=== PATIENT | female | born 1930 | race Caucasian/White ===

== ENCOUNTER → 2016-10-27 | Outpatient (CLI) | payer OTHER ==
[~2016-10-27] MED LIST: ALPH50CA2 PO; AMLO5TAB2 PO; CARV12.52 PO; ENAL10TA PO; LACT1CAP35 PO; PIOG15TA2 PO; PREG50CA PO
[2016-10-27 15:37] LABS: ASPARTATE AMINO TRANSFERASE 11 U/L (15-37); BLOOD UREA NITROGEN 25 mg/dL (7-18)
== END | disposition home or self-care (01) ==
LOC: STAR 14:06
PROVIDERS: ATTEND Neurological Surgery
DX: Z01.818 Encounter for other preprocedural examination (principal); M51.36 Other intervertebral disc degeneration, lumbar region; M48.07 Spinal stenosis, lumbosacral region; G89.29 Other chronic pain; R79.1 Abnormal coagulation profile
CPT/HCPCS: 36415; 71020; 72110; 80053; 81001; 85025; 85610; 85730; 87086; 93005

== ENCOUNTER 2016-11-03 10:00 | Inpatient (IN) | payer OTHER ==
[~2016-11-03] VITALS: Ht 167.6 cm; Wt 74.0 kg
[~2016-11-03 10:00] MED LIST changes: +BACITRACIN 50,000 UNIT ONE; +BUPIVACAINE/PF 0.25% ONE; +BUPIVACAINE/PF-EPI 0.5% 1:200K ONE; +THROMBIN 5,000 UNIT VIAL TP ONE
[2016-11-03] MEDS ORDERED: LACTATED RINGERS 1,000 ML IV SCH (11:41)
[2016-11-03 11:45] VITALS: BP 137/71
[2016-11-03] MEDS ORDERED: FENTANYL PF 250 MCG/5ML ONE (12:00)
[2016-11-03] MEDS ORDERED: ONDANSETRON 2MG/ML, 2ML IVPush PRN (13:00)
[2016-11-03] MEDS ORDERED: OXYcodone 5 MG/5 ML ORAL.SOL UDC PO PRN (13:00)
[2016-11-03] MEDS ORDERED: hydrALAzine 20 MG/ML, 1ML IV PRN (13:00)
[2016-11-03] MEDS ORDERED: LABETALOL 5MG/ML, 20ML IV PRN (13:00)
[2016-11-03] MEDS ORDERED: HYDROmorphone 1 MG/ML, 1ML IV PRN (13:00)
[2016-11-03] MEDS ORDERED: FENTANYL PF 100 MCG/2ML IV PRN (13:00)
[2016-11-03] MEDS ORDERED: FENTANYL PF 100 MCG/2ML EPIDPUSH ONE (13:02)
[2016-11-03] MEDS ORDERED: FENTANYL PF 100 MCG/2ML ONE (13:26)
[2016-11-03] MEDS ORDERED: PROMETHAZINE 25 MG/ML, 1ML IM PRN (14:00)
[2016-11-03] MEDS ORDERED: CYCLOBENZAPRINE 10 MG TABLET PO PRN (14:00)
[2016-11-03] MEDS ORDERED: morphine SULFATE 10 MG/ML, 1ML IVPush PRN (14:00)
[2016-11-03] MEDS ORDERED: PHARMACY MAY ADJ FOR RENAL FX MC PRN (14:00)
[2016-11-03] MEDS ORDERED: HYDROcodone/APAP 5/325 TABLET PO PRN (14:00)
[2016-11-03] MEDS ORDERED: DIPHENHYDRAMINE 50 MG/ML, 1ML IVPush PRN (14:00)
[2016-11-03] MEDS ORDERED: HYDROcodone/APAP 10/325 MG TABLET PO PRN (14:00)
[2016-11-03] MEDS ORDERED: SENNA/DOCUSATE TABLET PO PRN (14:00)
[2016-11-03] MEDS ORDERED: CEFAZOLIN 1,000 MG ONE (16:10)
[2016-11-03] MEDS ORDERED: ONDANSETRON 2MG/ML, 2ML ONE (16:10)
[2016-11-03] MEDS ORDERED: PROPOFOL 10 MG/ML, 20ML ONE (16:10)
[2016-11-03] MEDS ORDERED: SUCCINYLCHOLINE 20 MG/ML, 10ML ONE (16:10)
[2016-11-03] MEDS ORDERED: ROCURONIUM 10 MG/ML ONE (16:10)
[2016-11-03] MEDS ORDERED: GLYCOPYRROLATE 0.2MG/1ML ONE (16:10)
[2016-11-03] MEDS: OXYcodone/APAP 5/325MG TABLET PO PRN ×3 (17:50→23:31)
[2016-11-03] MEDS: INSULIN REGULAR 100 UNITS/ML, 3ML VIAL SQ-INSULIN SCH ×2 (17:50→21:00)
[2016-11-03] MEDS: NS + 20MEQ KCL 1,000 ML IV SCH (18:53)
[2016-11-03 20:05] VITALS: BP 134/75
[2016-11-03] MEDS: PREGABALIN 25 MG CAPSULE PO SCH (21:01)
[2016-11-03] MEDS: ENALAPRIL 10 MG TABLET PO SCH (21:01)
[2016-11-03] MEDS: CARVEDILOL 25 MG TABLET PO SCH (21:02)
[2016-11-03] MEDS: SODIUM CHLORIDE FLUSH 10ML SYR IVF SCH (21:04)
[2016-11-03] MEDS: CEFAZOLIN PMX 1GM/50ML 50 ML IVPB SCH (23:36)
[2016-11-04 00:15] VITALS: BP 148/79
[2016-11-04] MEDS: OXYcodone/APAP 5/325MG TABLET PO PRN ×5 (03:47→23:47)
[2016-11-04 03:48] VITALS: BP 125/59
[2016-11-04] MEDS: NS + 20MEQ KCL 1,000 ML IV SCH ×2 (06:20→19:40)
[2016-11-04] MEDS: INSULIN REGULAR 100 UNITS/ML, 3ML VIAL SQ-INSULIN SCH ×4 (07:00→21:00)
[2016-11-04 07:35] VITALS: BP 121/61
[2016-11-04] MEDS: CARVEDILOL 25 MG TABLET PO SCH ×2 (08:02→21:10)
[2016-11-04] MEDS: CEFAZOLIN PMX 1GM/50ML 50 ML IVPB SCH (08:02)
[2016-11-04] MEDS: PREGABALIN 25 MG CAPSULE PO SCH ×2 (08:02→21:09)
[2016-11-04] MEDS: LACTOBACILLUS CHEW TABLET PO SCH (08:03)
[2016-11-04] MEDS: ENALAPRIL 10 MG TABLET PO SCH ×2 (08:03→21:09)
[2016-11-04] MEDS: PIOGLITAZONE 15 MG TABLET PO SCH (08:03)
[2016-11-04] MEDS: SODIUM CHLORIDE FLUSH 10ML SYR IVF SCH ×2 (08:07→21:10)
[2016-11-04] MEDS: AMLODIPINE 5 MG TABLET PO SCH (09:00)
[2016-11-04] MEDS ORDERED: TEMPLATE NON-FORMULARY MED. (Alpha Lipoic Acid** 50 MG) PO SCH (09:00)
[2016-11-04 15:15] VITALS: BP 124/68
[2016-11-04 19:23] VITALS: BP 110/69
[2016-11-04] MEDS: ONDANSETRON 2MG/ML, 2ML IVPush PRN (21:17)
[2016-11-05 03:28] VITALS: BP 135/95
[2016-11-05] MEDS: INSULIN REGULAR 100 UNITS/ML, 3ML VIAL SQ-INSULIN SCH ×4 (07:00→21:00)
[2016-11-05] MEDS: OXYcodone/APAP 5/325MG TABLET PO PRN ×2 (08:18→13:12)
[2016-11-05] MEDS: AMLODIPINE 5 MG TABLET PO SCH (08:19)
[2016-11-05] MEDS: CARVEDILOL 25 MG TABLET PO SCH ×2 (08:19→20:58)
[2016-11-05] MEDS: PREGABALIN 25 MG CAPSULE PO SCH ×2 (08:19→20:58)
[2016-11-05] MEDS: ENALAPRIL 10 MG TABLET PO SCH ×2 (08:19→20:58)
[2016-11-05] MEDS: LACTOBACILLUS CHEW TABLET PO SCH (08:19)
[2016-11-05] MEDS: PIOGLITAZONE 15 MG TABLET PO SCH (08:19)
[2016-11-05] MEDS: SODIUM CHLORIDE FLUSH 10ML SYR IVF SCH ×2 (08:20→20:59)
[2016-11-05] MEDS: ONDANSETRON 2MG/ML, 2ML IVPush PRN ×2 (08:24→17:13)
[2016-11-05] MEDS: NS + 20MEQ KCL 1,000 ML IV SCH ×2 (09:00→21:14)
[2016-11-05] MEDS: MAGNESIUM HYDROXIDE 8%, 30ML UDC PO PRN (10:32)
[2016-11-05 12:45] VITALS: BP 102/63
[2016-11-05] MEDS: BISACODYL 10 MG SUPP PR PRN (13:13)
[2016-11-05] MEDS ORDERED: SCOPOLAMINE PATCH, 1.5MG PATCH.TD72 TD ONE (18:30)
[2016-11-05] MEDS: METOCLOPRAMIDE 5 MG/ML, 2ML IVPush SCH (18:51)
[2016-11-05 19:05] VITALS: BP 146/69
[2016-11-06 02:00] VITALS: BP 112/65
[2016-11-06] MEDS: METOCLOPRAMIDE 5 MG/ML, 2ML IVPush SCH ×2 (03:49→11:30)
[2016-11-06] MEDS: INSULIN REGULAR 100 UNITS/ML, 3ML VIAL SQ-INSULIN SCH ×2 (07:00→11:00)
[2016-11-06 07:31] VITALS: BP 124/73
[2016-11-06] MEDS: PREGABALIN 25 MG CAPSULE PO SCH (07:58)
[2016-11-06] MEDS: PIOGLITAZONE 15 MG TABLET PO SCH (07:58)
[2016-11-06] MEDS: SODIUM CHLORIDE FLUSH 10ML SYR IVF SCH (07:59)
[2016-11-06] MEDS: AMLODIPINE 5 MG TABLET PO SCH (07:59)
[2016-11-06] MEDS: LACTOBACILLUS CHEW TABLET PO SCH (07:59)
[2016-11-06] MEDS: ENALAPRIL 10 MG TABLET PO SCH (07:59)
[2016-11-06] MEDS: CARVEDILOL 25 MG TABLET PO SCH (07:59)
[2016-11-06] MEDS: MAGNESIUM HYDROXIDE 8%, 30ML UDC PO PRN (08:05)
[2016-11-06] MEDS: BISACODYL 10 MG SUPP PR PRN (08:05)
[2016-11-06] MEDS ORDERED: OXYC-302 PO (08:09)
[2016-11-06 10:30] VITALS: BP 125/70
[2016-11-06] MEDS ORDERED: PROM25TA10 PO (10:41)
[2016-11-06] MEDS ORDERED: DOXY100T9 PO (10:42)
[2016-11-06] MEDS: OXYcodone/APAP 5/325MG TABLET PO PRN (11:31)
== END 2016-11-06 11:47 | disposition home health service (06) | DRG 517 ==
LOC: EDSTATUS 10:00 → ORIP 11:05 → 4NOR 16:05
PROVIDERS: ADMIT Neurological Surgery; ATTEND Neurological Surgery
PROC: 01NB0ZZ Release Lumbar Nerve, Open Approach (ICD-10-PCS; 2016-11-03)
PROC: 01NR0ZZ Release Sacral Nerve, Open Approach (ICD-10-PCS; 2016-11-03)
PROC: 4A11X4G Monitoring of Peripheral Nervous Electrical Activity, Intraoperative, External Approach (ICD-10-PCS; principal; 2016-11-03 16:30)
DX: M48.06 Spinal stenosis, lumbar region (principal); K59.00 Constipation, unspecified; M54.16 Radiculopathy, lumbar region; I10 Essential (primary) hypertension; E11.9 Type 2 diabetes mellitus without complications; G89.29 Other chronic pain; Z90.49 Acquired absence of other specified parts of digestive tract; Z88.8 Allergy status to other drugs, medicaments and biological substances; M48.07 Spinal stenosis, lumbosacral region
CPT/HCPCS: 36415; 72100; 82962; 85025; J0690; J2405; J2704; J3010; J3480; J3490; J0330; J2765; J7120

== ENCOUNTER → 2017-03-15 | Outpatient (CLI) | payer OTHER ==
[~2017-03-15] MED LIST changes: -BACITRACIN 50,000 UNIT ONE; -BUPIVACAINE/PF 0.25% ONE; -BUPIVACAINE/PF-EPI 0.5% 1:200K ONE; +DOXY100T9 PO; +GABA300C10 PO; +OXYC-302 PO; +PROM25TA10 PO; -THROMBIN 5,000 UNIT VIAL TP ONE
[2017-03-15 12:18] LABS: HEMATOCRIT 43.3 % (34.6-47.8); HEMOGLOBIN 14.5 g/dL (11.7-16.4); WHITE BLOOD COUNT 6.8 x10^3/uL (3.4-10)
[2017-03-15 12:21] LABS: PATH.CAST-FLAG NOT PRESENT; SPERM-FLAG NOT PRESENT; SRC-FLAG NOT PRESENT; XTAL-FLAG NOT PRESENT; YLC-FLAG NOT PRESENT
[2017-03-15 12:30] LABS: BLOOD UREA NITROGEN 14 mg/dL (7-18)
[2017-03-15 12:34] LABS: ASPARTATE AMINO TRANSFERASE 14 U/L (15-37)
== END | disposition home or self-care (01) ==
LOC: STAR 11:21
PROVIDERS: ATTEND Neurological Surgery
DX: Z01.818 Encounter for other preprocedural examination (principal); M51.36 Other intervertebral disc degeneration, lumbar region; Z79.01 Long term (current) use of anticoagulants
CPT/HCPCS: 36415; 71020; 72110; 80053; 81001; 85025; 85610; 85730; 87086; 93005

== ENCOUNTER 2017-03-23 12:51 | Observation (INO) | payer OTHER ==
[2017-03-15 11:06] VITALS: BP 145/78
[~2017-03-23] VITALS: Ht 167.6 cm; Wt 65.2 kg
[~2017-03-23 12:51] MED LIST changes: +BACITRACIN 50,000 UNIT ONE; +BUPIVACAINE 0.25% ONE; +BUPIVACAINE/PF 0.5% ONE; +CEFAZOLIN 1,000 MG ONE; +DEXAMETHASONE 4 MG/ML, 1ML ONE; +EPINEPHRINE 1 MG/ML, 1ML ONE; +FENTANYL PF 100 MCG/2ML ONE; +MIDAZOLAM 1 MG/ML, 2ML ONE; +ONDANSETRON 2MG/ML, 2ML ONE; +PROPOFOL 10 MG/ML, 20ML ONE; +THROMBIN 5,000 UNIT VIAL TP ONE
[2017-03-23] MEDS ORDERED: LIDOCAINE-MPF 2% ,5ML ONE (12:59)
[2017-03-23] MEDS ORDERED: SUCCINYLCHOLINE 20 MG/ML, 10ML ONE (12:59)
[2017-03-23] MEDS ORDERED: LIDOCAINE 1%, 2ML ONE (13:12)
[2017-03-23] MEDS ORDERED: LACTATED RINGERS 1,000 ML IV SCH (13:13)
[2017-03-23] MEDS ORDERED: PHENYLEPHRINE 10 MG/ML ONE (13:50)
[2017-03-23] MEDS ORDERED: ROCURONIUM 10 MG/ML ONE (13:50)
[2017-03-23] MEDS ORDERED: EPHEDRINE 50 MG/ML, 1ML ONE (14:20)
[2017-03-23] MEDS ORDERED: ALBUTEROL/IPRATROPIUM 2.5MG/0.5MG, 3 ML NPPB PRN (14:30)
[2017-03-23] MEDS ORDERED: LABETALOL 5MG/ML, 20ML IV PRN (14:30)
[2017-03-23] MEDS ORDERED: ACETAMINOPHEN 325 MG TABLET PO PRN (14:30)
[2017-03-23] MEDS ORDERED: DIAZEPAM 5 MG/ML, 2ML IVPush PRN (14:30)
[2017-03-23] MEDS ORDERED: PROMETHAZINE 25 MG/ML, 1ML IV PRN (14:30)
[2017-03-23] MEDS ORDERED: OXYcodone 5 MG/5 ML ORAL.SOL UDC PO PRN (14:30)
[2017-03-23] MEDS ORDERED: hydrALAzine 20 MG/ML, 1ML IV PRN (14:30)
[2017-03-23] MEDS ORDERED: ONDANSETRON 2MG/ML, 2ML IVPush PRN ×2 (14:30→16:00)
[2017-03-23] MEDS ORDERED: MIDAZOLAM 1 MG/ML, 2ML IV PRN (14:30)
[2017-03-23] MEDS ORDERED: MEPERIDINE/PF 25MG/0.5ML IVPush PRN (14:30)
[2017-03-23] MEDS ORDERED: EPINEPHRINE 1 MG/ML, 1ML INFIL ONE (14:43)
[2017-03-23] MEDS ORDERED: MORPHINE SULFATE 4 MG/ML, 1ML IVPush PRN (16:00)
[2017-03-23] MEDS ORDERED: LABETALOL 5MG/ML, 20ML IVPush PRN (16:00)
[2017-03-23] MEDS ORDERED: INSULIN REGULAR 100 UNITS/ML, 3ML VIAL SQ-INSULIN PRN (16:00)
[2017-03-23] MEDS ORDERED: BISACODYL 10 MG SUPP PR PRN (16:00)
[2017-03-23] MEDS ORDERED: SENNA/DOCUSATE TABLET PO PRN (16:00)
[2017-03-23] MEDS ORDERED: PROMETHAZINE 25 MG/ML, 1ML IM PRN (16:00)
[2017-03-23] MEDS ORDERED: DIPHENHYDRAMINE 50 MG/ML, 1ML IVPush PRN (16:00)
[2017-03-23] MEDS ORDERED: HYDROcodone/APAP 10/325 MG TABLET PO PRN (16:00)
[2017-03-23] MEDS ORDERED: FENTANYL PF 100 MCG/2ML ONE (16:00)
[2017-03-23] MEDS ORDERED: ACETAMINOPHEN 650 MG SUPP PR PRN (16:00)
[2017-03-23] MEDS ORDERED: PHARMACY MAY ADJ FOR RENAL FX MC PRN (16:00)
[2017-03-23] MEDS ORDERED: CYCLOBENZAPRINE 10 MG TABLET PO PRN (16:00)
[2017-03-23] MEDS ORDERED: HYDROcodone/APAP 5/325 TABLET PO PRN (16:00)
[2017-03-23] MEDS ORDERED: ACETAMINOPHEN 650 MG/20.3 ML UDC ONE (16:00)
[2017-03-23] MEDS ORDERED: OXYcodone 5 MG/5 ML ORAL.SOL UDC ONE (16:01)
[2017-03-23] MEDS: FENTANYL PF 100 MCG/2ML IV PRN ×4 (16:05→16:33)
[2017-03-23] MEDS ORDERED: HYDROmorphone 1 MG/ML, 1ML ONE (16:22)
[2017-03-23] MEDS: HYDROmorphone 1 MG/ML, 1ML IV PRN ×2 (16:25→16:39)
[2017-03-23 19:10] VITALS: BP 134/52
[2017-03-23] MEDS ORDERED: NS + 20MEQ KCL 1,000 ML IV SCH (20:00)
[2017-03-23] MEDS: GABAPENTIN 300 MG CAPSULE PO SCH (20:27)
[2017-03-23] MEDS: SODIUM CHLORIDE FLUSH 10ML SYR IVF SCH (20:28)
[2017-03-23] MEDS: OXYcodone/APAP 5/325MG TABLET PO PRN ×2 (20:38→20:39)
[2017-03-23] MEDS: CARVEDILOL 12.5 MG TABLET PO SCH (21:00)
[2017-03-23] MEDS: ENALAPRIL 10 MG TABLET PO SCH (21:00)
[2017-03-23] MEDS: CEFAZOLIN PMX 1GM/50ML 50 ML IVPB SCH (22:15)
[2017-03-23 23:54] VITALS: BP 136/76
[2017-03-24 04:00] VITALS: BP 120/57
[2017-03-24] MEDS: CEFAZOLIN PMX 1GM/50ML 50 ML IVPB SCH (05:50)
[2017-03-24 06:50] VITALS: BP 127/64
[2017-03-24] MEDS: GABAPENTIN 300 MG CAPSULE PO SCH (08:54)
[2017-03-24] MEDS: CARVEDILOL 12.5 MG TABLET PO SCH (08:55)
[2017-03-24] MEDS: ENALAPRIL 10 MG TABLET PO SCH (08:56)
[2017-03-24] MEDS: SODIUM CHLORIDE FLUSH 10ML SYR IVF SCH (08:56)
[2017-03-24] MEDS ORDERED: AMLODIPINE 5 MG TABLET PO SCH (09:00)
[2017-03-24] MEDS ORDERED: PIOGLITAZONE 15 MG TABLET PO SCH (09:00)
[2017-03-24] MEDS: OXYcodone/APAP 5/325MG TABLET PO PRN (09:06)
[2017-03-24] MEDS ORDERED: FLU VACC QS2017-18 (36MOS+) UP/PF 0.5 ML IM-VACC ONE (12:30)
[2017-03-24] MEDS ORDERED: OXYC-302 PO (13:31)
[2017-03-24] MEDS ORDERED: CYCL5TAB PO (13:32)
[2017-03-24] MEDS ORDERED: CEPH-368 PO (13:32)
== END 2017-03-24 13:50 | disposition home or self-care (01) ==
LOC: INTOOBSV 12:51 → ORIP 12:51 → 4NOR 17:34 → DCLOUNGE 03-24 13:19
PROVIDERS: ADMIT Neurological Surgery; ATTEND Neurological Surgery
DX: M48.062 Spinal stenosis, lumbar region with neurogenic claudication (principal); M54.16 Radiculopathy, lumbar region; M46.90 Unspecified inflammatory spondylopathy, site unspecified; I10 Essential (primary) hypertension; E11.9 Type 2 diabetes mellitus without complications; R53.1 Weakness; Z23 Encounter for immunization
CPT/HCPCS: 63047; 63048; 63056; 63057; 72100; 82962; 90471; 90686; 96365; 96375; 97162; 97165; G0008; G0378; J0171; J0330; J0690; J1100; J1170; J2250; J2370; J2405; J2704; J3010; J3480; J3490; J7120